=== PATIENT | female | born 1965 | race Caucasian/White ===

== ENCOUNTER 2017-03-10 13:00 | Emergency (ER) | payer MEDICAID ==
[~2017-03-10] VITALS: Ht 154.9 cm; Wt 69.4 kg
[2017-03-10 14:14] VITALS: BP 121/72
[2017-03-10] MEDS ORDERED: LATUDA 40 MG (14:22)
[2017-03-10] MEDS ORDERED: BUPROPION HCL SR 150 MG TAB (14:22)
[2017-03-10] MEDS ORDERED: TRAZODONE HCL 100 MG (14:22)
[2017-03-10] MEDS ORDERED: DOXEPIN HCL 25 MG CAP (14:22)
[2017-03-10] MEDS ORDERED: HYDROXYZINE PAM 25 MG CAP (14:22)
[2017-03-10] MEDS ORDERED: FLUT0.057 NS (14:27)
[2017-03-10] MEDS ORDERED: DIT5 PO (14:27)
[2017-03-10] MEDS ORDERED: METO25TE2 PO (14:27)
[2017-03-10] MEDS ORDERED: GLU500 PO (14:27)
[2017-03-10] MEDS ORDERED: ACET-2858 PO (14:27)
[2017-03-10] MEDS ORDERED: [UNRECOGNIZED DRUG - CODE] SQ (14:27)
[2017-03-10] MEDS ORDERED: TRAZ-289 PO (14:27)
[2017-03-10] MEDS ORDERED: CALC-281 PO (14:27)
[2017-03-10] MEDS ORDERED: PANT20EC PO (14:27)
[2017-03-10] MEDS ORDERED: [UNRECOGNIZED DRUG - CODE] TP (14:27)
[2017-03-10] MEDS ORDERED: ATOR10TA51 PO (14:28)
[2017-03-10] MEDS ORDERED: BACL10TA4 PO (14:28)
--- NOTE | 2017-03-10 15:30 | NUR ---
Note undone in EDM - 03/10/17 at 1531 by [email or web address] / BIB C/O PIN[place] RASHES X3DAYS. 4-5 NOTED ON CHEST AND ABD. BUG BITES VERSUS ABSCESS VS PIMPLE. HX = DM, HTN, HIGH CHOLESTEROL, BIPOLAR, INSOMNIA, DEPRESSION. SX = CSECT, CHOLECYSTECTOMY, HYSTERECTOMY, AND UNK SX. AX = CIPROFLOAXIN.
[2017-03-10 16:25] VITALS: BP 124/79
--- NOTE | 2017-03-10 16:25 | NUR ---
Patient discharged with v/s stable. Written and verbal after care instructions given and explained. Patient alert, oriented and verbalized understanding of instructions. Ambulatory with steady gait. All questions addressed prior to discharge. ID band removed. Patient advised to follow up with PMD. Rx of MOTRIN, KALEX & BACTRIM given. Patient educated on indication of medication including possible reaction and side effects. Opportunity to ask questions provided and answered.
== END 2017-03-10 16:25 | disposition home or self-care (01) ==
LOC: MED 13:00
DX: L03.311 Cellulitis of abdominal wall (principal); L03.313 Cellulitis of chest wall; E11.9 Type 2 diabetes mellitus without complications; I10 Essential (primary) hypertension; E78.00 Pure hypercholesterolemia, unspecified; F31.9 Bipolar disorder, unspecified; G47.00 Insomnia, unspecified; Z88.1 Allergy status to other antibiotic agents
CPT/HCPCS: 82948; 99283

== ENCOUNTER 2018-06-18 20:56 | Emergency (ER) | payer MEDICAID, OTHER ==
[~2018-06-18] VITALS: Ht 154.9 cm; Wt 74.8 kg
[~2018-06-18 20:56] MED LIST: ATOR10TA51 PO; BACL10TA4 PO; BUPROPION HCL SR 150 MG TAB; CALC-281 PO; DIT5 PO; DOXEPIN HCL 25 MG CAP; FLUT0.057 NS; GLU500 PO; HYDR-5092 PO; HYDROXYZINE PAM 25 MG CAP; LATUDA 40 MG; METO25TE2 PO; PANT20EC PO; TRAZ100T99 PO; TRAZODONE HCL 100 MG; [UNRECOGNIZED DRUG - CODE] SQ; [UNRECOGNIZED DRUG - CODE] TP
[2018-06-18 21:07] VITALS: BP 150/90
--- NOTE | 2018-06-18 21:09 | NUR ---
TO LOBBY A/W BED , AYDEN SINGLETON NOTED
--- NOTE | 2018-06-18 22:19 | NUR ---
PT TAKEN TO BED 4
--- NOTE | 2018-06-18 22:40 | NUR ---
53 y/o f presented to ed with c/o bilateral leg pain. aaox4. symptoms started 2 days ago. full ROM to bilateral legs. 10/10 pain, aching in sensation. sensation felt in bilateral legs. bedrail x1 up. ERMD notified. will continue to monitor.
--- NOTE | 2018-06-18 22:45 | NUR ---
Dr. Hairston evaluating patient at bedside.
[2018-06-18] MEDS ORDERED: NACL 0.9% 500 ML IV ONE (22:47)
[2018-06-18] MEDS ORDERED: ONDANSETRON 4 MG/2 ML VIAL IVP ONE (22:50)
[2018-06-18] MEDS ORDERED: fentaNYL 0.05 MG/ML VIAL IVP ONE (22:50)
[2018-06-18] MEDS ORDERED: LIDOCAINE MPF 1% 5mL VIAL ONE (23:11)
[2018-06-18 23:36] LABS: BASOPHILS # (AUTO) 0.1 K/uL (0.00-0.22); BASOPHILS % (AUTO) 0.7 % (0.0-2.0); EOSINOPHILS # (AUTO) 0.1 K/uL (0-0.4); HEMOGLOBIN 14.1 g/dL (12.0-16.0); MONOCYTES # (AUTO) 0.7 K/uL (0.8-1.0); RED BLOOD CELL COUNT(AUTO) 5.58 MIL/uL (4.20-5.40); WHITE BLOOD COUNT (AUTO) 11.3 K/uL (4.8-10.8)
[2018-06-18 23:40] LABS: EOSINOPHILS % (AUTO) 0.9 % (0.0-4.0); HEMATOCRIT 43.5 % (36-48); LYMPHOCYTES % (AUTO) 17.3 % (20.5-51.1); MEAN CORPUSCULAR HEMOGLOBIN 25 pg (27-31); MEAN CORPUSCULAR HGB CONC 32 g/dL (33-37); MEAN CORPUSCULAR VOLUME 77.9 fL (80-94); MONOCYTES % (AUTO) 6.2 % (1.7-9.3); NEUTROPHILS # (AUTO) 8.5 K/uL (1.8-7.7); NEUTROPHILS % (AUTO) 74.9 % (42.2-75.2); PLATELET COUNT (AUTO) 257 K/uL (140-450); RED CELL DISTRIBUTION WIDTH 15.6 % (11.6-13.7)
[2018-06-19 00:16] LABS: POTASSIUM 4.3 mmol/L (3.5-5.1)
[2018-06-19 00:17] LABS: ALBUMIN 4.2 g/dL (3.4-5.0); CREATININE 1.1 mg/dL (0.6-1.3); TOTAL BILIRUBIN 0.5 mg/dL (0.0-1.0)
[2018-06-19 00:32] LABS: ANION GAP 17.1 (8-16); CARBON DIOXIDE 28.2 mmol/L (21-32)
--- NOTE | 2018-06-19 00:50 | NUR ---
Patient discharged with v/s stable. Written and verbal after care instructions given and explained. Patient alert, oriented and verbalized understanding of instructions. Ambulatory with steady gait. All questions addressed prior to discharge. ID band removed. Patient advised to follow up with PMD. Rx of lactulose, zofran, and gabapentin given. Patient educated on indication of medication including possible reaction and side effects. Opportunity to ask questions provided and answered.
--- NOTE | 2018-06-21 14:06 | NUR ---
Late entry. Confirmed with RN that 0.9NS IV at 100 ml/hr stopped at 0050.
== END 2018-06-19 00:50 | disposition home or self-care (01) ==
LOC: MED 20:56
DX: M79.604 Pain in right leg (principal); G89.29 Other chronic pain; R42 Dizziness and giddiness; R11.10 Vomiting, unspecified; M79.605 Pain in left leg; F17.210 Nicotine dependence, cigarettes, uncomplicated; Z88.1 Allergy status to other antibiotic agents; Z79.899 Other long term (current) drug therapy
CPT/HCPCS: 36415; 74022; 80053; 83690; 85025; 96361; 96374; 96375; 99284; J2001; J2405; J3010; J7030

== ENCOUNTER 2019-10-17 16:06 | Emergency (ER) | payer OTHER ==
[~2019-10-17] VITALS: Ht 154.9 cm; Wt 78.9 kg
[~2019-10-17 16:06] MED LIST changes: +TRAZ-471 PO; -TRAZ100T99 PO
[2019-10-17 16:21] VITALS: BP 131/82
--- NOTE | 2019-10-17 16:29 | NUR ---
BIB SELF C/O C/O RIGHT FOOT & TOES PAIN S/P FALL X 2 DAYS. DENIES LOC. MED HX: DM.PATIENT STATES PAIN OF 5/10 AT THIS TIME.
--- NOTE | 2019-10-17 17:00 | NUR ---
ermd evaluating pt
[2019-10-17] MEDS ORDERED: KETOROLAC 30 MG/ML VIAL IM ONE (17:05)
[2019-10-17 18:10] VITALS: BP 131/82
== END 2019-10-17 18:35 | disposition home or self-care (01) ==
LOC: MED 16:06
DX: S92.591A Other fracture of right lesser toe(s), initial encounter for closed fracture (principal); R73.03 Prediabetes; Z88.1 Allergy status to other antibiotic agents; Z79.899 Other long term (current) drug therapy; W19.XXXA Unspecified fall, initial encounter; Y93.89 Activity, other specified; Y92.89 Other specified places as the place of occurrence of the external cause; Y99.8 Other external cause status
CPT/HCPCS: 29515; 73630; 73660; 96372; 99284; J1885

== ENCOUNTER 2020-02-26 13:36 | Emergency (ER) | payer OTHER ==
[~2020-02-26] VITALS: Ht 154.9 cm; Wt 78.5 kg
[2020-02-26 13:49] VITALS: BP 125/74
--- NOTE | 2020-02-26 13:50 | NUR ---
C/O COUGH, ESCOBEDO X TODAY. BLOOD SUGAR 140, O2 SAT 94% AT THIS TIME. PMH: DM
--- NOTE | 2020-02-26 15:40 | NUR ---
COVID SWAB COLLECTED.
--- NOTE | 2020-02-26 15:46 | NUR ---
Patient discharged with v/s stable. Written and verbal after care instructions given and explained. Patient alert, oriented and verbalized understanding of instructions. Ambulatory with steady gait. All questions addressed prior to discharge. ID band removed. Patient advised to follow up with PMD. Rx of TYLENOL & PROMETHAZINE given. Patient educated on indication of medication including possible reaction and side effects. Opportunity to ask questions provided and answered.
[2020-02-26 15:47] VITALS: BP 118/78
== END 2020-02-26 15:46 | disposition home or self-care (01) ==
LOC: MED 13:36
DX: J98.11 Atelectasis (principal); Z20.828 Contact with and (suspected) exposure to other viral communicable diseases; F17.210 Nicotine dependence, cigarettes, uncomplicated; Z88.1 Allergy status to other antibiotic agents; Z79.899 Other long term (current) drug therapy
CPT/HCPCS: 71045; 99284; U0003